=== PATIENT | male | born 1945 | race Caucasian/White ===

== ENCOUNTER 2025-03-24 10:56 | Emergency (ER) | payer OTHER, MEDICARE ==
[~2025-03-24] VITALS: Ht 182.9 cm; Wt 81.8 kg
[~2025-03-24 10:56] MED LIST: HYDR-4383 PO
[2025-03-24 10:58] VITALS: BP 156/79; PULSE 59; RESP 18; O2SAT 98
--- NOTE | 2025-03-24 11:19 | Physician Documentation ---
History of Present Illness ~ Chief Complaint: Bite-animal Stated Complaint: DOG BITE Time Seen by MD: 11:01 Primary Medical Doctor: KAYY Source: patient Mode of Arrival: POV Exam Limitations: no limitations HPI 79-year-old male with dog bite to right wrist patient's own dog today Medication Reconciliation Allergies: Coded Allergies: No Known Allergies (Unverified , 03/24/25) Scheduled PRN Hydrocodone/Acetaminophen ([place]st 5-325 Tablet), 1 TABLET PO TID PRN for pain Past Medical History Past Medical History: High Cholesterol, Hypertension Lives with: Spouse Lives In: Home Review of Systems All Other Systems at this time: Reviewed and Negative Integumentary: Reports: see HPI Physical Exam Vital Signs: Heart Rate: 59, Respiratory Rate: 18, BP: 156/79, Pulse Oximetry: 98, Weight: 81.820 Physical Exam General: Alert, no apparent distress. Respiratory: Lungs clear, no respiratory distress. Chest: No accessory muscle use. Cardiovascular: Regular rate and rhythm, no murmurs. Extremities: Normal range of motion, no deformity. Superficial abrasions to the right anterior and posterior wrist 1 area that is approximately 1-1/2 cm partial-thickness bleeding controlled. Sensation circulation intact Neurologic: Oriented x4. Psychiatric: Normal mood and affect. Skin: Normal color, warm and dry. No edema, no ecchymosis. Progress Results/Orders Results/Orders Orders - VERONIKA LAND [employer] Dressing Orders (03/24/25 11:01) Wound Care Orders (03/24/25 11:01) Completed Orders - VERONIKA LAND [employer] Tetanus/Pertuss/Diph Acell/Pf (Boostrix (03/24/25 11:05) Vital Signs 03/24/25 10:58 Pulse 59 Resp 18 B/P (MAP) 156/79 Pulse Ox 98 Medical Decision Making Findings Patient was bitten by his own dog wound cleaned and dressed no repair needed. Antibiotics and follow up with primary care Departure Time of Disposition: 12:22 Disposition: 01 HOME / SELF CARE / HOMELESS Impression: Primary Impression: Dog bite Condition: Stable Discharge Instructions: Animal Bite, Adult Additional Instructions: Change dressing daily monitor for infection and take antibiotics as prescribed follow up with primary care in 1 week Referrals: NO PRIMARY CARE PROVIDER (PCP) Prescriptions Amox Tr/Potassium Clavulanate (Augmentin 875-125 Tablet) 1 Each Tablet 1 TAB PO Q12H for 7 Days, #14 TAB Prov: VERONIKA LAND NP 03/24/25 Education Educated: Patient Educated regarding: diagnosis, treatment, need for follow up Signature Scribe Signature: no Scribe Attestation: The note accurately reflects work and decisions made by me.Veronika Land - MIGRATION SPECIALIST 03/24/25 12:23 VERONIKA LAND NP Mar 24, 2025 11:19
[2025-03-24] MEDS ORDERED: AMOX-117 PO (12:23)
[2025-03-24] MEDS: bacitracin 15gm ointment TP ONE (13:07)
[2025-03-24] MEDS: TETanus/Pertussis (Acell)/Diphther VAC/PF (Tdap-Adult) 0.5ml syringe IMVAC ONE (13:08)
== END 2025-03-24 13:15 | disposition home or self-care (01) ==
LOC: ER 10:56
DX: S60.811A Abrasion of right wrist, initial encounter (principal); I10 Essential (primary) hypertension; E78.00 Pure hypercholesterolemia, unspecified; W54.0XXA Bitten by dog, initial encounter; Y93.89 Activity, other specified; Y92.89 Other specified places as the place of occurrence of the external cause; Y99.8 Other external cause status
CPT/HCPCS: 90471; 90715; 99283; A6258